=== PATIENT | female | born 1990 | race Two or more races ===

== ENCOUNTER 2023-03-22 09:37 | Emergency (ER) | payer OTHER ==
[~2023-03-22] VITALS: Ht 157.5 cm; Wt 59.0 kg
== END 2023-03-22 10:56 | disposition home or self-care (01) ==
LOC: ER 09:37
DX: J03.90 Acute tonsillitis, unspecified (principal)

== ENCOUNTER 2024-04-13 08:53 | Emergency (ER) | payer OTHER ==
[~2024-04-13] VITALS: Ht 157.5 cm; Wt 68.0 kg
[2024-04-13] MEDS ORDERED: KETOROLAC TROMETHAMINE 30 MG VIAL IV ONE (09:45)
[2024-04-13 10:13] LABS: HEMATOCRIT 41.7 % (36.0-45.00); HEMOGLOBIN 14.4 g/dL (12.0-15.00); MEAN CELL VOLUME 81.8 fL (80.00-100.00); MEAN CORPUSCULAR HEMOGLOBIN 28.2 pg (27.00-32.0); MEAN CORPUSCULAR HGB CONC 34.5 g/dl (32.0-36.0); PLATELET COUNT 193 K/uL (150-450)
[2024-04-13 11:36] LABS: CALCIUM 9.2 mg/dL (8.5-10.1); CREATININE SERUM 0.74 mg/dL (0.55-1.02); GFR 91.54; POTASSIUM 4.1 mEq/L (3.5-5.1)
== END 2024-04-13 13:31 | disposition home or self-care (01) ==
LOC: ER 08:53
PROVIDERS: Emergency Medicine
DX: R10.9 Unspecified abdominal pain (principal)

== ENCOUNTER 2024-04-19 07:51 | Outpatient (CLI) | payer OTHER | END 2024-04-19 07:52 | disposition home or self-care (01) | LOC: NUCLEAR 07:51 | DX: R10.9 Unspecified abdominal pain (principal) ==

== ENCOUNTER 2025-03-05 09:18 | Inpatient (IN) | payer OTHER ==
[~2025-03-05] VITALS: Ht 162.6 cm; Wt 63.5 kg
--- NOTE | 2025-03-05 09:43 | NUR ---
PACIENTE ALERTA Y ORIENTADA X 3. REFIERE DESDE LA MADRUGADA DOLOR ABDOMINAL, DIARREAS X 10 Y VOMITOS X 2.
[2025-03-05] MEDS ORDERED: FAMOtidine 10 MG/ML (4ML VIAL) IV PUSH ONE (10:15)
[2025-03-05] MEDS ORDERED: 0.9 % SODIUM CHLORIDE 1,000 ML IV SCH (10:15)
[2025-03-05] MEDS ORDERED: MORPHINE SULFATE 4 MG/ML CARTRIDGE IV ONE (10:15)
[2025-03-05] MEDS ORDERED: ONDANSETRON HCL 2 MG/ML VIAL IV ONE (10:15)
[2025-03-05 11:00] LABS: BASO % 0.2 % (0.1-1.2); EOS # 0.04 (0.04-0.54); EOS % 0.3 % (0.7-7.0); LYMPH # 1.35 (1.18-3.74); LYMPH % 11.1 % (19.3-53.1); MEAN PLATELET VOLUME 11.50 fl (9.4-12.4); MONO # 0.51 (0.24-0.82); MONO % 4.2 % (4.7-12.5); NEUT # 10.22 (1.56-6.13); NEUT % 84.0 % (34.0-71.1); RED CELL DISTRIBUTION WIDTH 12.8 % (11.6-14.4)
--- NOTE | 2025-03-05 11:09 | NUR ---
SE RE ORIENTA A PTE SOBRE [place] MEDICO, EL MISMO VERBALIZA ENTENDER , BAJO MEDIDAS ASEPTICAS SE [facility]QUEZ MUESTRAS DE LABORATORIO , SE ADMINISTRAN MEDICAMENTOS DICK ORDEN MEDICA, SE ENTREGA EMBASE PARA MUESTRA DE U/A A PTE.
[2025-03-05 11:19] LABS: ALT/SGPT 19 U/L (12-78); AST/SGOT 13 U/L (15-37); BILIRUBIN TOTAL 0.64 mg/dL (0.3-1.2); BUN CREA RATIO 17 (7.0-25.0); CREATININE SERUM 0.64 mg/dL (0.55-1.02); GFR 107.54; GLOBULINA 4.1 G/DL (2.4-3.5); GLUCOSE FASTING 97 mg/dL (65-100); OSMOLALITY SERUM 281 MOSM/KG (275-295)
[2025-03-05 11:27] LABS: HCG QUANTITATIVE < 1 mUI/mL (1-3)
[2025-03-05 11:33] LABS: INR 1.14
[2025-03-05 12:11] LABS: URINE APPEARANCE Clear; URINE BILIRRUBIN Negative (NEGATIVE); URINE BLOOD Trace; URINE COLOR Yellow; URINE GLUCOSE Negative (NEGATIVE); URINE KETONE Negative (NEGATIVE); URINE LEUKOCYTE Negative; URINE NITRATE Negative; URINE PROTEIN Negative (NEGATIVE); URINE UROBILINOGEN 0.2 E.U./dl
[2025-03-05 12:18] LABS: URINE BACTERIA 1157.8 uL (0.0-1933); URINE EPITHELIAL CELLS 38.0 uL (0.0-38.8); URINE RBC 6.8 uL (0.0-20.8); URINE WBC 2.4 uL (0.0-23.2)
[2025-03-05 12:19] LABS: URINE CAST 0.00 uL (0.0-1.40)
[2025-03-05] MEDS ORDERED: CIPROFLOXACIN IN 5 % DEXTROSE 200 ML IV SCH (14:16)
[2025-03-05] MEDS ORDERED: FAMOTIDINE/PF 20 MG in 0.9 % SODIUM CHLORIDE 8 ML IV PUSH SCH (15:12)
[2025-03-05] MEDS ORDERED: ONDANSETRON HCL 4 MG in 0.9 % SODIUM CHLORIDE 50 ML IV PRN (15:15)
[2025-03-05] MEDS ORDERED: MORPHINE SULFATE 4 MG/ML CARTRIDGE IV PRN (15:15)
[2025-03-05 17:48] VITALS: BP 120/90
[2025-03-05] MEDS ORDERED: MORPHINE SULFATE 2 MG/ML CARTRIDGE IV PRN (18:45)
[2025-03-06 08:00] VITALS: BP 93/60; O2SAT 100
[2025-03-06 16:00] VITALS: BP 103/70; O2SAT 99
[2025-03-06] MEDS ORDERED: LACTOBACILLUS ACIDOPHILUS 1 CAP CAP PO SCH (17:00)
[2025-03-06 23:50] VITALS: BP 108/57; O2SAT 100
[2025-03-07 06:50] LABS: BASO % 0.4 % (0.1-1.2); EOS # 0.22 (0.04-0.54); EOS % 4.2 % (0.7-7.0); LYMPH # 1.51 (1.18-3.74); LYMPH % 29.0 % (19.3-53.1); MEAN PLATELET VOLUME 11.30 fl (9.4-12.4); MONO # 0.54 (0.24-0.82); MONO % 10.4 % (4.7-12.5); NEUT # 2.91 (1.56-6.13); NEUT % 55.8 % (34.0-71.1); RED CELL DISTRIBUTION WIDTH 12.7 % (11.6-14.4)
[2025-03-07 07:01] LABS: ALT/SGPT 13 U/L (12-78); AST/SGOT 10 U/L (15-37); BILIRUBIN TOTAL 1.01 mg/dL (0.3-1.2); BUN CREA RATIO 8 (7.0-25.0); CREATININE SERUM 0.79 mg/dL (0.55-1.02); GFR 84.34; GLOBULINA 3.0 G/DL (2.4-3.5); GLUCOSE FASTING 88 mg/dL (65-100); OSMOLALITY SERUM 282 MOSM/KG (275-295)
[2025-03-07 08:08] VITALS: BP 96/62; O2SAT 99
[2025-03-07 16:14] VITALS: BP 107/72; O2SAT 99
== END 2025-03-07 18:47 | disposition home or self-care (01) | DRG 392 ==
LOC: SURH → EDBD 09:19 → ER 09:19 → SEC-K 17:11 → SURH 17:11
PROVIDERS: General Practice; Internal Medicine Infectious Disease; ADMIT Internal Medicine; ATTEND Internal Medicine
PROC: BW21ZZZ Computerized Tomography (CT Scan) of Abdomen and Pelvis (ICD-10-PCS; principal; 2025-03-05)
DX: K52.9 Noninfective gastroenteritis and colitis, unspecified (principal); K56.7 Ileus, unspecified; D72.829 Elevated white blood cell count, unspecified

== ENCOUNTER 2025-03-10 14:25 | Emergency (ER) | payer OTHER ==
[~2025-03-10] VITALS: Ht 157.5 cm; Wt 67.1 kg
[2025-03-10 17:16] LABS: BASO % 0.6 % (0.1-1.2); EOS # 0.08 (0.04-0.54); EOS % 1.7 % (0.7-7.0); LYMPH # 1.75 (1.18-3.74); LYMPH % 36.8 % (19.3-53.1); MEAN PLATELET VOLUME 11.00 fl (9.4-12.4); MONO # 0.45 (0.24-0.82); MONO % 9.5 % (4.7-12.5); NEUT # 2.43 (1.56-6.13); NEUT % 51.2 % (34.0-71.1); RED CELL DISTRIBUTION WIDTH 12.4 % (11.6-14.4)
[2025-03-10 17:57] LABS: ALT/SGPT 24.0 U/L (12-78); AST/SGOT 16.0 U/L (15-37); BILIRUBIN TOTAL 0.49 mg/dL (0.3-1.2); BUN CREA RATIO 11.0 (7.0-25.0); CREATININE SERUM 0.79 mg/dL (0.55-1.02); GFR 84.34; GLOBULINA 3.7 G/DL (2.4-3.5); GLUCOSE FASTING 88.0 mg/dL (65-100); OSMOLALITY SERUM 277.0 MOSM/KG (275-295)
[2025-03-10] MEDS ORDERED: MAGNESIUM HYDROXIDE 400 MG/5 ML ML PO STA (21:10)
[2025-03-10] MEDS ORDERED: MINERAL OIL 30 ML BLIST.PACK PO STA (21:10)
[2025-03-10] MEDS ORDERED: LACTULOSE 20 G/30 ML BLIST.PACK PO STA (21:10)
[2025-03-10] MEDS ORDERED: MAGNESIUM HYDROXIDE 30 ML BLIST.PACK PO ONE (21:21)
[2025-03-10] MEDS ORDERED: MINERAL OIL 30 ML BLIST.PACK ONE (21:21)
[2025-03-10] MEDS ORDERED: LACTULOSE 20 G/30 ML BLIST.PACK ONE (21:21)
== END 2025-03-10 21:50 | disposition home or self-care (01) ==
LOC: ER 14:25
PROVIDERS: General Practice
DX: K59.00 Constipation, unspecified (principal)